=== PATIENT | female | born 1980 | race Caucasian/White ===

== ENCOUNTER 2025-03-04 15:46 | Emergency (ER) | payer OTHER, SELFPAY ==
[2025-03-04 15:56] VITALS: BP 141/95
[2025-03-04 16:14] LABS: Hematocrit 38.3 % (37.0-47.0); Hemoglobin 13.5 g/dL (12.0-16.0); Mean Corp Hgb Conc. 35.2 g/dL (33.0-37.0); Mean Corpuscular Hgb 32.1 pg (27.0-31.0); Mean Corpuscular Volume 91.2 fL (81.0-99.0); Mean Platelet Volume 9.5 fL (7.4-10.4); Platelet Count 228 10^3/uL (130-400); Red Cell Dist. Width 12.2 % (11.5-14.5)
[2025-03-04 16:34] LABS: Blood Urea Nitrogen 3 mg/dl (7-17); Calcium 9.2 mg/dl (8.4-10.2); Carbon Dioxide 21 mmol/L (22-30); Chloride 105 mmol/L (98-107); Glucose 123 mg/dl (70-99); Potassium 3.7 mmol/L (3.5-5.1); Sodium 136 mmol/L (135-145); eGFR > 60.00
[2025-03-04] MEDS: TYLENOL 650 MG PO (18:56)
--- NOTE | 2025-03-04 19:43 | ED.GENMED ---
History of Present Illness
General
Chief Complaint: Headache
Source: patient and family
Time Seen by Provider: 03/04/25 19:22
History of Present Illness
History of Present Illness:
44-year-old female presents emergency department complaints of a headache that first began on Friday and then went away shortly after she had dinner. She felt well on Friday until the afternoon when she developed a gradual onset of a headache
mostly on the right side frontal area but now sometimes extending all over her head. It felt very typical of a 'migraine' for her, so she went to bed at around 7 PM, and tried to create a dark quiet environment. However, the headache is not
resolved since that time. She saw her primary today and was prescribed sumatriptan hand. She was advised to take 2 doses and if no relief of symptoms to come to the emergency department. She did take those doses as well as a low-dose of Benadryl.
The headache is better but still present. She denies associated neck pain, chest pain, dyspnea. She denies recent trauma or fall. She does note associated photophobia which is typical of a migraine for her. The headache feels better when she
applies ice to the right frontal area, and gets partial relief with Tylenol or Motrin. Headache not sudden in onset, and not the worst that she has ever had, but rather just prolonged. She rates the headache as a 5 out of 10 at this time. She
denies recent tick bite, recent rash, recent sick contacts. She denies numbness, tingling, focal weakness, or other complaints. Patient was unaware that she had a fever until arrival here. She denies recent URI symptoms, cough, sore throat,
rhinorrhea, ear pain, etc.
Past History
Past History
ED Past Medical History: HTN and Psychiatric
ED Past Surgical History: Gynecological
Social History
Tobacco: Non-smoker
Alcohol: Occasional
Drug: None
Personal:
Living: with family
Phy Exam
Physical Exam
Physical Exam:
GENERAL: Alert , in no apparent distress
EYE: pupils equal and reactive, no objective photophobia noted, EOMI, no nystagmus
NECK: Supple, no significant adenopathy, not just in no without hesitation.
ENT: o/p clr, mmm.
CARDIAC: Regular rate and rhythm .
LUNGS: Clear breath sounds bilaterally, no acute respiratory distress, no wheezes/rales/rhonchi
ABDOMEN: Soft, without focal tenderness, no r/g, no cvat
NEUROLOGICAL: Alert and oriented, no focal neuro deficits, motor 5 out of 5, sensory intact, cranial nerves II through XII intact, [id number] normal. No meningismus, negative Kernig, negative Brudzinski
SKIN: Warm and dry, skin intact.
MUSCULOSKELETAL: No edema, well perfused.
PSYCH: Normal and appropriate interaction.
Course
Orders/Labs/Results
Orders:
Orders
03/04/25 16:04
BMP [Basic Metabolic Panel] Urgent
Complete Blood Count/No Diff Urgent
Lyme Progressive Urgent
03/04/25 18:55
Acetaminophen [Tylenol] 650 mg PO NOW STA
03/04/25 19:41
CT Head W/o Iv Contrast Urgent
Comment:
Reason For Exam: nunez fever
0.9% Sodium Chloride 1000 ml [Nss] 1,000 ml IV BOLUS
Metoclopramide [Reglan] 10 mg IV NOW STA
03/04/25 19:46
Add On- LAB Urgent
Tests Added?: lyme
03/04/25 20:20
COVID-19 Antigen Urgent
Source: Nasal Swab
Influenza A+B Rapid Molecular Urgent
TIKA Source: Nasal Swab
Specimen Description:
Abnormal Lab Results
03/04/25
16:04
MCH 32.1 H pg
(27.0-31.0)
Carbon Dioxide 21 L mmol/L
(22-30)
BUN 3 L mg/dl
(7-17)
Glucose 123 H mg/dl
(70-99)
03/04/25 16:04
03/04/25 16:04
Vital Signs
Initial and Last Documented VS:
Initial Vital Signs
Temp Pulse Resp BP Pulse Ox
101.4 F H 120 16 141/95 100
03/04/25 15:56 03/04/25 15:56 03/04/25 15:56 03/04/25 15:56 03/04/25 15:56
Last Documented Vital Signs
Temp Pulse Resp BP Pulse Ox
102.9 F H 120 16 141/95 100
03/04/25 18:52 03/04/25 15:56 03/04/25 15:56 03/04/25 15:56 03/04/25 19:46
*Pulse Oximetry
SaO2: 100
Oxygen Mode of Delivery: Room air
*Critical Care Note
Total Time (30-74mins, 75-104mins- exclusive of procedures): Not Applicable
Update Note
Update Note:
Patient presents to the Emergency Department with headache
Number and Complexity of Problems Addressed at the Encounter
� Chronic conditions affecting care:
� Acute Exacerbation and/or Progression of Chronic Illness:
� Differential Diagnosis includes: But not limited to persistent migraine, tension headache, meningitis, Lyme disease, etc. etc.
Amount and/or Complexity of Data to be Reviewed and Analyzed
� I performed an independent evaluation of and my interpretation is:
EKG:
CT:No CT evidence for acute intracranial hemorrhage or obstructive hydrocephalus.
2. Low-lying cerebellar tonsils (or mild Chiari I malformation).
3. Mild right sphenoid sinusitis.
Xrays:
Laboratory Studies: Generally unremarkable, normal white blood cell count, COVID flu negative
Other:
� Review of other/old records reveals:
� Clinical information was obtained by an independent historian: Mom who is bedside
� Prescriptions/Medications Considered but not given:
� Further testing considered but not performed:
Risk of Complications and/or Morbidity or Mortality of Patient Management
� Social determinants of health affecting care:
� Discussion with other providers (PCP, Hospitalists, Consultants, etc):
� Escalation of care including admission/observation vs risk of discharge considered: 8:55 PM reassessment patient feels better, no new symptoms. She specially finds that the medication plus an ice pack at the right frontal area
completely relieves her symptoms. She continues to look nontoxic, generally well, and she is asking about going home. At this time I highly doubt acute infectious process centrally such as meningitis/encephalitis given patient's well appearance,
lack of meningismus, etc.
9:50 PM patient given copy of CT report for outpatient follow-up. She feels significantly better and is eager to be discharged. She denies new symptoms, and continues to be nontoxic. Given context of headache and fever, meningitis/encephalitis
always a consideration however her clinical condition and workup here have been very unconvincing. I did discuss with her reasons to return the emergency department including new symptoms, worsening headache, etc. and the importance of follow-up.
Her neurological exam is completely normal. Mom at bedside and in agreement as well.
ED Attending Note
-
Portions of this chart may have been created with voice recognition software.� Occasional wrong word or��sound alike� substitutions may have occurred due to the inherent limitations of voice recognition software.
Discharge Plan
Departure
Patient Disposition: Home (Routine Discharge)
Date of Disposition: 03/04/25
Time of Disposition: 21:52
Patient with high blood pressure during this ER visit?: Yes
Condition: Good
Discharge Problem:
Headache
Instructions: Headache, Adult (DC), BLOOD PRESSURE
Prescriptions:
No Action
vit-iron fum-folic ac [ Vitamin with Minerals] 1 EACH tablet
1 ea PO
citalopram 20 MG tablet
20 mg PO DAILY
CALCIUM
FOLIC ACID
Magnesium
Referrals:
UNKNOWN - PT DOES,NOT KNOW [Family Provider]
Activity Restrictions/Additional Instructions:
IF YOU DEVELOP A RASH, WORSENING NEW OR PERSISTENT HEADACHE, NECK STIFFNESS OR PAIN, NAUSEA, VOMITING, LETHARGY, GET WORSE, DO NOT GET BETTER, OR OTHER WORRISOME, PLEASE RETURN TO THE ER IMMEDIATELY !
Interventions
Interventions:
*Risk Screen - Suicide Last Done: 03/04/25 15:56
*General Assessment Last Done: 03/04/25 17:14
*Neglect/Abuse Screening Last Done: 03/04/25 16:00
ED- Neurological Assessment Last Done: 03/04/25 17:14
Discharge Date and Time
Print Language: LITHUANIAN
[2025-03-04] MEDS: REGLAN 10 MG IV (19:49)
[2025-03-04] MEDS: NSS 1000 IV (19:50)
[2025-03-04 20:42] LABS: COVID-19 Antigen Negative (Negative)
[2025-03-07 13:43] LABS: Lyme Antibody Screen, EIA Negative (Negative)
== END 2025-03-04 22:09 | disposition home or self-care (01) ==
LOC: EMR 15:46
PROVIDERS: Student in an Organized Health Care Education/Training Program; EMERGENCY PHYSICIAN Emergency Medicine
DX: R51.9 Headache, unspecified (principal); I10 Essential (primary) hypertension; Z11.52 Encounter for screening for COVID-19
CPT/HCPCS: 99285; 96360; 70450; 80048; 85027; 86618; 87502; 87811

== ENCOUNTER 2025-03-05 19:22 | Inpatient (IN) | payer OTHER, SELFPAY ==
[2025-03-05 11:53] VITALS: BP 138/86
[2025-03-05] MEDS: NSS 500 IV (14:58)
[2025-03-05] MEDS: BENADRYL 12.5 MG IV (14:58)
--- NOTE | 2025-03-05 14:58 | ED.GENMED ---
History of Present Illness
<Pavel Devine MD - Last Filed: 03/05/25 15:05>
General
Chief Complaint: Fever
Source: patient
Exam Limitations: none
Time Seen by Provider: 03/05/25 12:38
Nursing documentation reviewed up to this point in time: agreed with
History of Present Illness
History of Present Illness:
Patient presents to ED secondary to persistent headache over the past 3 days, along with fever. Patient took ibuprofen this morning, on approximately 2 hours prior to arrival secondary to continual fever. Denies blurred vision. Denies neck pain.
Denies dizziness. Denies nausea or vomiting. Denies loss of sensation or weakness. Denies sore throat. Patient was evaluated in ED last night for same complaint and was discharged home after unremarkable workup, including blood work and CT head.
On her discharge instructions, patient was advised to return to ED with rash. Patient reports that she did notice rash in her left lower leg, which when thinking about it, was present 1 week ago as well, and has not changed in morphology or
location. Denies rash in any other part of her body. Denies take or insect bite. Denies recent travel. Denies sick contact. Denies previous history of similar symptoms. Patient reports photophobia.
Past History
<Pavel Devine MD - Last Filed: 03/05/25 15:05>
Past History
ED Past Medical History: HTN and Psychiatric
ED Past Surgical History: Gynecological
Social History
Tobacco: Non-smoker
Alcohol: Occasional
Drug: None
Personal:
Living: with family
Review of Systems
<Pavel Devine MD - Last Filed: 03/05/25 15:05>
Review of Systems
Allergies reviewed?: Yes
All Other Systems: ROS reviewed and negative except as documented in HPI and ROS
Constitutional: Reports fever
Respiratory: Reports no symptoms
Cardiac: Reports no symptoms
ABD/GI: Reports no symptoms
Musculoskeletal: Reports no symptoms
Skin: Reports no symptoms
Neurological: Reports headache
Phy Exam
<Pavel Devine MD - Last Filed: 03/05/25 15:05>
Physical Exam
Physical Exam:
Physical Exam
General: mild distress, not acutely ill. afebrile.
Head: nc/at. eomi
Neck: supple. no meningeal signs. negative Kernig's and Brudzinski's sign. normal range of motion.
Heart: s1/s2 regular rate and rhythm
Lungs: no acute respiratory distress. clear bilaterally
Abdomen: normal bowel sounds. not tender.
Neuro: alert and oriented x 3. no focal neurological deficits. normal speech
Skin: an approx 4cm diameter papular rash noted over left lower leg, along anterior tibia, without tenderness. an approx 1cm area of erythema noted at base of left 2nd/3rd phalanx without tenderness or open drainage
Psychiatric: well kept. interactive and cooperative
Extremities: no edema. no calf tenderness.
Course
<Pavel Devine MD - Last Filed: 03/05/25 15:05>
Orders/Labs/Results
Orders:
Orders
03/05/25 14:34
Diphenhydramine [Benadryl] 12.5 mg IV NOW STA
Ketorolac [Toradol] 15 mg IV NOW STA
Metoclopramide [Reglan] 10 mg IV NOW STA
03/05/25 14:36
0.9% Sodium Chloride 500 ml [Nss] 500 ml IV BOLUS
03/05/25 14:52
Anaplasma phagocytophila IgG/M [S] Urgent
C-Reactive Protein Urgent
Comment: ADD ON
Complete Blood Count/With Diff Urgent
Comprehensive Metabolic Panel Urgent
Ehrlichia chaffeensis Ab Panel [S] Urgent
Erythrocyte Sed Rate Urgent
Comment: ADD ON
Magnesium Urgent
Monotest Urgent
Comment: ADD ON
Uric Acid Urgent
Comment: ADD ON
Blood Culture Q30M
TIKA Source: Blood/Venous
Specimen Description:
Blood Culture Q30M
TIKA Source: Blood/Venous
Specimen Description:
Blood Parasites Urgent
TIKA Source: Blood/Venous
Specimen Description:
03/05/25 Dinner
Regular
At Your Request: Full Participation
03/05/25 17:40
Add On- LAB Urgent
Tests Added?: ESR, CRP
03/05/25 17:49
Add On- LAB Urgent
Tests Added?: monoscreen
03/05/25 17:55
D-Dimer Urgent
Lyme PCR, DNA [S] Urgent
Varicella-Zoster Virus By PCR [S] Urgent
Source: Vesicle Fluid
Comment: CSF
03/05/25 18:10
MR Brain W/o & With Contrast Routine
Comment:
Reason For Exam: headache, fever, rash
OK for patient to be off Cardiac Monitoring for MRI: No
Recent pill cam endoscopy?: No
03/05/25 18:46
SHAMEKA, IgG Reflex to HEp-2 [S] Routine
Sjogrens Ab (SSA 52, 60/SSB) [S] Routine
03/05/25 18:53
Morphine Sulfate 4 mg IV NOW STA
03/05/25 19:02
Admit/Transfer Patient As Directed
Co-Sign Provider:
Level of Care: Inpatient admission
Assign to:: Medical/Surgical
Physician / Group: Gus
Diagnosis: Fever
Reason for Hospitalization: Fever of uknown source
Expected length of stay greater than two midnights?: Yes
ELOS- Estimated Length of Stay in days: 2
I certify the patient meets the requirements for IP care: Yes
PRN Pain Medication Management As Directed
May give lesser potent ordered pain med per pt: Yes
preference::
Protocol:: Medication orders for pain may be administered in a
manner that supports deferring to patient preference
when the pt is:
- Requesting an ordered lesser potent pain medication.
Least to most potent pain medications are defined
as: acetaminophen < NSAID < tramadol < opioids
(morphine, oxycodone, hydromorphone).
- Requesting a lesser dose of the same medication IF
ORDERED.
- Requesting a less intrusive route of administration
if both routes are prescribed by the provider (PO <
IV).
03/05/25 19:03
Code Status As Directed
Resuscitation Status: Full Code
03/05/25 19:17
Add On- LAB Stat
Tests Added?: uric acid
CR Foot - Left Min 3 Views Stat
Comment:
Reason For Exam: eval for foreign body, osteo
03/05/25 21:02
Acetaminophen [Tylenol] 650 mg PO Q4HPRN PRN
Bisacodyl [Dulcolax] 10 mg RECTAL [id number] PRN
Docusate W/Senna [Senokot-S] 1 tablet PO BIDPRN PRN
Ketorolac [Toradol] 15 mg IV Q6HPRN PRN
Metoclopramide [Reglan] 10 mg IV Q6HPRN PRN
Morphine Sulfate 2 mg IV Q4HPRN PRN
Polyethylene Glycol Powder [Miralax] 17 grams PO DAILYPRN PRN
03/05/25 21:02
Activity As Directed
Activity Level: With Assistance
Pneumatic Compression Sleeves As Directed
Type: Knee high
Vital Signs As Directed
Frequency: Per unit guidelines
DX Deep Vein Thrombosis Video Routine
03/06/25 06:00
Basic Metabolic Panel IN AM
Complete Blood Count/No Diff IN AM
Abnormal Lab Results
03/05/25 03/05/25
14:52 17:55
WBC 4.7 L 10^3/uL
(4.8-10.8)
RBC 3.97 L 10^6/uL
(4.20-5.40)
Hct 36.5 L %
(37.0-47.0)
MCH 32.0 H pg
(27.0-31.0)
Absolute Lymphs (auto) 0.7 L 10^3/uL
(1.2-3.4)
Lymphocytes % 14.9 L %
(20.5-51.1)
Monocytes % 10.2 H %
(1.7-9.3)
ESR 192 H mm/hour
(0-20)
D-Dimer 0.95 H ug/mlFEU
(0.00-0.50)
Potassium 3.4 L mmol/L
(3.5-5.1)
Chloride 110 H mmol/L
(98-107)
Creatinine 0.5 L mg/dL
(0.6-1.0)
Uric Acid 2.2 L mg/dl
(2.5-6.2)
AST 119 H U/L
(14-36)
ALT 98 H U/L
(0-35)
C-Reactive Protein 135.10 H mg/L
(0.0-10.00)
03/05/25 14:52
03/05/25 14:52
Vital Signs
Initial and Last Documented VS:
Initial Vital Signs
Temp Pulse Resp BP Pulse Ox
98.4 F 102 18 138/86 100
03/05/25 11:53 03/05/25 11:53 03/05/25 11:53 03/05/25 11:53 03/05/25 11:53
Last Documented Vital Signs
Temp Pulse Resp BP Pulse Ox
102.4 F H 109 14 146/95 100
03/05/25 21:23 03/05/25 21:23 03/05/25 21:23 03/05/25 21:23 03/05/25 21:23
<Juan Moreno, DO - Last Filed: 03/05/25 22:53>
Orders/Labs/Results
Orders:
Orders
03/05/25 14:34
Diphenhydramine [Benadryl] 12.5 mg IV NOW STA
Ketorolac [Toradol] 15 mg IV NOW STA
Metoclopramide [Reglan] 10 mg IV NOW STA
03/05/25 14:36
0.9% Sodium Chloride 500 ml [Nss] 500 ml IV BOLUS
03/05/25 14:52
Anaplasma phagocytophila IgG/M [S] Urgent
C-Reactive Protein Urgent
Comment: ADD ON
Complete Blood Count/With Diff Urgent
Comprehensive Metabolic Panel Urgent
Ehrlichia chaffeensis Ab Panel [S] Urgent
Erythrocyte Sed Rate Urgent
Comment: ADD ON
Magnesium Urgent
Monotest Urgent
Comment: ADD ON
Uric Acid Urgent
Comment: ADD ON
Blood Culture Q30M
TIKA Source: Blood/Venous
Specimen Description:
Blood Culture Q30M
TIKA Source: Blood/Venous
Specimen Description:
Blood Parasites Urgent
TIKA Source: Blood/Venous
Specimen Description:
03/05/25 Dinner
Regular
At Your Request: Full Participation
03/05/25 17:40
Add On- LAB Urgent
Tests Added?: ESR, CRP
03/05/25 17:49
Add On- LAB Urgent
Tests Added?: monoscreen
03/05/25 17:55
D-Dimer Urgent
Lyme PCR, DNA [S] Urgent
Varicella-Zoster Virus By PCR [S] Urgent
Source: Vesicle Fluid
Comment: CSF
03/05/25 18:10
MR Brain W/o & With Contrast Routine
Comment:
Reason For Exam: headache, fever, rash
OK for patient to be off Cardiac Monitoring for MRI: No
Recent pill cam endoscopy?: No
03/05/25 18:46
SHAMEKA, IgG Reflex to HEp-2 [S] Routine
Sjogrens Ab (SSA 52, 60/SSB) [S] Routine
03/05/25 18:53
Morphine Sulfate 4 mg IV NOW STA
03/05/25 19:02
Admit/Transfer Patient As Directed
Co-Sign Provider:
Level of Care: Inpatient admission
Assign to:: Medical/Surgical
Physician / Group: Gus
Diagnosis: Fever
Reason for Hospitalization: Fever of uknown source
Expected length of stay greater than two midnights?: Yes
ELOS- Estimated Length of Stay in days: 2
I certify the patient meets the requirements for IP care: Yes
PRN Pain Medication Management As Directed
May give lesser potent ordered pain med per pt: Yes
preference::
Protocol:: Medication orders for pain may be administered in a
manner that supports deferring to patient preference
when the pt is:
- Requesting an ordered lesser potent pain medication.
Least to most potent pain medications are defined
as: acetaminophen < NSAID < tramadol < opioids
(morphine, oxycodone, hydromorphone).
- Requesting a lesser dose of the same medication IF
ORDERED.
- Requesting a less intrusive route of administration
if both routes are prescribed by the provider (PO <
IV).
03/05/25 19:03
Code Status As Directed
Resuscitation Status: Full Code
03/05/25 19:17
Add On- LAB Stat
Tests Added?: uric acid
CR Foot - Left Min 3 Views Stat
Comment:
Reason For Exam: eval for foreign body, osteo
03/05/25 21:02
Acetaminophen [Tylenol] 650 mg PO Q4HPRN PRN
Bisacodyl [Dulcolax] 10 mg RECTAL [id number] PRN
Docusate W/Senna [Senokot-S] 1 tablet PO BIDPRN PRN
Ketorolac [Toradol] 15 mg IV Q6HPRN PRN
Metoclopramide [Reglan] 10 mg IV Q6HPRN PRN
Morphine Sulfate 2 mg IV Q4HPRN PRN
Polyethylene Glycol Powder [Miralax] 17 grams PO DAILYPRN PRN
03/05/25 21:02
Activity As Directed
Activity Level: With Assistance
Pneumatic Compression Sleeves As Directed
Type: Knee high
Vital Signs As Directed
Frequency: Per unit guidelines
DX Deep Vein Thrombosis Video Routine
03/06/25 06:00
Basic Metabolic Panel IN AM
Complete Blood Count/No Diff IN AM
Abnormal Lab Results
03/05/25 03/05/25
14:52 17:55
WBC 4.7 L 10^3/uL
(4.8-10.8)
RBC 3.97 L 10^6/uL
(4.20-5.40)
Hct 36.5 L %
(37.0-47.0)
MCH 32.0 H pg
(27.0-31.0)
Absolute Lymphs (auto) 0.7 L 10^3/uL
(1.2-3.4)
Lymphocytes % 14.9 L %
(20.5-51.1)
Monocytes % 10.2 H %
(1.7-9.3)
ESR 192 H mm/hour
(0-20)
D-Dimer 0.95 H ug/mlFEU
(0.00-0.50)
Potassium 3.4 L mmol/L
(3.5-5.1)
Chloride 110 H mmol/L
(98-107)
Creatinine 0.5 L mg/dL
(0.6-1.0)
Uric Acid 2.2 L mg/dl
(2.5-6.2)
AST 119 H U/L
(14-36)
ALT 98 H U/L
(0-35)
C-Reactive Protein 135.10 H mg/L
(0.0-10.00)
03/05/25 14:52
03/05/25 14:52
Vital Signs
Initial and Last Documented VS:
Initial Vital Signs
Temp Pulse Resp BP Pulse Ox
98.4 F 102 18 138/86 100
03/05/25 11:53 03/05/25 11:53 03/05/25 11:53 03/05/25 11:53 03/05/25 11:53
Last Documented Vital Signs
Temp Pulse Resp BP Pulse Ox
102.4 F H 109 14 146/95 100
03/05/25 21:23 03/05/25 21:23 03/05/25 21:23 03/05/25 21:23 03/05/25 21:23
<Pavel Devine MD - Last Filed: 03/05/25 15:05>
MDM/Problems Addressed
MDM/Problems Addressed:
History and exam consistent with likely nonspecific viral illness. Exam inconsistent with acute bacterial meningitis. In light of patient's ongoing symptoms, will check patient for blood cultures along with other tickborne illnesses, i.e.
Anaplasma, ehrlichiosis, and Babesia. Patient will be treated symptomatically and if improved, will discharge home with recommendation to follow-up with PCP for reevaluation.
<Pavel Devine MD - Last Filed: 03/05/25 15:05>
*Pulse Oximetry
SaO2: 100
Oxygen Mode of Delivery: Room air
<Juan Moreno DO - Last Filed: 03/05/25 22:53>
*Critical Care Note
Total Time (30-74mins, 75-104mins- exclusive of procedures): 30 minutes
<Juan Moreno DO - Last Filed: 03/05/25 22:53>
Update Note
Update Note:
Patient reassessed several times. Continues to have headache despite meds given. Presents after she had fevers and headache. Also with a rash to the lower extremity. Considered lumbar puncture and had a long discussion with the patient. However
reviewed CT imaging from yesterday that considered Chiari I malformation Case was discussed with neurology. Given my low suspicion for bacterial meningitis and findings by CT, do not want to proceed with lumbar puncture given its risk. Patient is
otherwise well-appearing and do overall suspect viral source. Seen by neurology who recommends admission for MRI and possible lumbar puncture if necessary. Other cultures pending. Neurology recommends D-dimer, ESR, CRP
ED Attending Note
<Pavel Devine MD - Last Filed: 03/05/25 15:05>
-
Portions of this chart may have been created with voice recognition software.� Occasional wrong word or��sound alike� substitutions may have occurred due to the inherent limitations of voice recognition software.
Discharge Plan
Departure
Patient Disposition: Admit
Date of Disposition: 03/05/25
Time of Disposition: 18:45
Admit to: Med/Surg
Presentation/result/management discussed w/ accepting MD/DO: Hospitalist
Discharge Problem:
Headache, Fever
Interventions
Interventions:
*Risk Screen - Suicide Last Done: 03/05/25 11:53
*General Assessment Last Done: 03/05/25 11:53
*Neglect/Abuse Screening Last Done: 03/05/25 11:53
*ED- Fall Risk Assessment Last Done: 03/05/25 12:37
*ED COVID-19 Vaccine History Last Done: 03/05/25 12:37
*Nursing Disposition Last Done: 03/05/25 21:05
ED- Neurological Assessment Last Done: 03/05/25 12:37
ED-Skin Assessment Last Done: 03/05/25 12:37
Discharge Date and Time
Discharge Date/Time: 03/05/25 21:06
[2025-03-05] MEDS: REGLAN 10 MG IV (14:59)
[2025-03-05] MEDS: TORADOL 15 MG IV (14:59)
[2025-03-05 15:02] LABS: % Basophils 0.4 % (0-2); % Eosinophils 1.3 % (0-6); % Immature Granulocytes 0.2 % (0-0.5); % Lymphocytes 14.9 % (20.5-51.1); % Monocytes 10.2 % (1.7-9.3); Absolute Eosinophils 0.1 10^3/uL (0-0.7); Absolute Lymphocytes 0.7 10^3/uL (1.2-3.4); Absolute Monocytes 0.5 10^3/uL (0.1-0.6); Absolute Neutrophils 3.4 10^3/uL (1.4-6.5); Hematocrit 36.5 % (37.0-47.0); Hemoglobin 12.7 g/dL (12.0-16.0); Mean Corp Hgb Conc. 34.8 g/dL (33.0-37.0); Mean Corpuscular Volume 91.9 fL (81.0-99.0); Mean Platelet Volume 9.4 fL (7.4-10.4); Nucleated Red Blood Cells % 0 %; Platelet Count 210 10^3/uL (130-400); Red Blood Cell Count 3.97 10^6/uL (4.20-5.40); Red Cell Dist. Width 12.3 % (11.5-14.5); White Blood Cell Count 4.7 10^3/uL (4.8-10.8)
[2025-03-05 15:15] LABS: ALT (SGPT) 98 U/L (0-35); AST (SGOT) 119 U/L (14-36); Albumin 4.1 g/dl (3.5-5.0); Alkaline Phosphatase 89 U/L (38-126); Blood Urea Nitrogen 7 mg/dl (7-17); Calcium 8.9 mg/dl (8.4-10.2); Carbon Dioxide 23 mmol/L (22-30); Chloride 110 mmol/L (98-107); Glucose 88 mg/dl (70-99); Magnesium 2.1 mg/dl (1.6-2.3); Potassium 3.4 mmol/L (3.5-5.1); Sodium 142 mmol/L (135-145); Total Bilirubin 0.6 mg/dl (0.2-1.3); Total Protein 6.9 g/dl (6.3-8.2); eGFR > 60.00
[2025-03-05 16:17] VITALS: BP 129/84
--- NOTE | 2025-03-05 18:09 | CON.NEURO ---
Addendum entered and electronically signed by Leila Barraza MD 03/14/25 10:16:
- Chiari I malformation is not a valid diagnosis for this patient
Original Note:
Consultation
Order
Date of Consultation: 03/05/25
Reason for Consult: Headache
Neurology Consultation Note.
HPI: This is a 44-year-old woman who presented to [facility] on 03/05/2025 with refractory headaches
The current headache began gradually on Friday, initially resolving after dinner. It returned on Friday, and the patient initially attributed it to weather changes. The headache has persisted and worsened over the past three days, reaching a
severity of 8-10 out of 10. The pain is described as pressure, throbbing, and pulsating, dominantly bitemporal with associated phono/photophobia and mild nausea. No reports of head trauma, change in vision sensation or strength, recent traveling,
sore throat, ear pain, nasal congestion. Ms. Romreo reports being in the process of tapering down her sertraline dose from 100mg to 50mg over the past two months.
The patient has attempted to manage the headache with [id number] medications including ibuprofen, acetaminophen, and Excedrin, taken every 4-6 hours since . She was seen by PCP and prescribed sumatriptan 25mg, which she took on Friday
without relief. Due to the lack of improvement, the patient went to the emergency room on 03/04/2025 afternoon, where he she was found to be febrile(39.4F).
Concurrent with the onset of the headache, the patient noticed a nonpruritic, erythematous rash on her left calf and dorsum of the L foot.
ER VS: Tmax: 39.1 C, 138/86, 102
CT [id number] cerebellar tonsils (or mild Chiari I malformation); mild right sphenoid sinusitis.
PDMP:none
Labs: Normal glucose, sodium, ferritin, WBCs�4.7, ALT�98, AST�119
PMH: HTN, MONICA, migraine without aura, vitamin D deficiency
PSH: Multiple laparoscopic surgeries for ectopic pregnancies
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
FH: No family history of rheumatological disease
All:NKDA
ROS:positive for fever; intentional weight loss over the past year and a half
HENT: Negative for ear pain, hearing loss, tinnitus and trouble swallowing.
Eyes: Negative. Negative for photophobia, pain and visual disturbance.
Respiratory: Negative for cough, choking and shortness of breath.
Cardiovascular: Negative for chest pain, palpitations and leg swelling.
Gastrointestinal: Positive for mild nausea.
Endocrine: Negative. Negative for cold intolerance.
Genitourinary: Negative for dysuria, flank pain and urgency.
Musculoskeletal: Negative for back pain, gait problem, neck pain and neck stiffness.
Skin: Positive for rash
Allergic/Immunologic: Negative. Negative for immunocompromised state.
Neurological: Positive for headache
Psychiatric/Behavioral: Negative for behavioral problems, confusion and hallucinations.
General: Well developed. In no acute distress.
Cardio: Regular rate and rhythm without murmur. Extremities are without cyanosis or edema.
Neuro:
Mental Status: Alert, oriented to person, place, and date. Normal attention and recall. Good fund of knowledge. Follows complex requests across the midline. Comprehension, naming, and repetition intact. Immediate and delayed recall 3/3.
Cranial Nerves: Pupils are equally round and reactive to light. EOMs full. Visual mcneal full to confrontation. No ptosis. No nystagmus. V1-V3 intact to light touch and pinprick bilaterally, symmetric. Face symmetric. Normal hearing AU. The
palate elevated well. SCMs and traps 5/5. Tongue midline. No dysarthria.
Motor: Normal bulk and tone. No pronator or arm drift. Strength 5/5 throughout. No clonus.
Reflexes: 2+ throughout the upper extremities and knees. 2/2 in AJs. Plantar responses flexor bilaterally.
Sensory: Normal pinprick, vibration and JPS.
Coordination: No dysmetria or tremor.
Gait: deferred
Assessment and Plan:
I. Right sphenoid sinusitis. Rule out cerebral sinus thrombosis
II. Status migrainous
III.MONICA
-EKG
- Brain MRI/MRV w/wo monica
- ID consult
- IV Toradol 30 mg, Reglan 10 mg, Benadryl 25 mg Q8h PRN for moderate to severe headache.
- Please check ESR, CRP, magnesium, Lyme ab, D Dimers
- DVT prophylaxis
I personally reviewed all radiology and labs along with past medical records pertinent to current medical problems. Total time spent in patient care is 60 minutes.
Thank you for allowing us to participate in the care of this patient. We will continue to follow. Please do not hesitate to contact us with any questions or concerns.
Subjective/Objective
Subjective Data
Date of Service: March 05, 2025
Objective Data
Vital Signs
Temp Pulse Resp BP Pulse Ox
37.2 C 88 16 129/84 99
03/05/25 16:17 03/05/25 16:17 03/05/25 16:17 03/05/25 16:17 03/05/25 16:17
Lab Results
03/05/25 14:52
03/05/25 14:52
Sodium 142 mmol/L (135-145) 03/05/25 14:52
Potassium 3.4 mmol/L (3.5-5.1) L 03/05/25 14:52
BUN 7 mg/dl (7-17) 03/05/25 14:52
Glucose 88 mg/dl (70-99) 03/05/25 14:52
Calcium 8.9 mg/dl (8.4-10.2) 03/05/25 14:52
Patient Allergies
No Known Drug Allergies Allergy (Verified 03/05/25 11:53)
Unknown
Medications
-
Home Medications
�Medication �Instructions �Recorded
CALCIUM 12/23/11
FOLIC ACID 12/23/11
Magnesium 12/23/11
citalopram 20 mg tablet 20 mg PO DAILY 12/23/11
vitamin-ferrous fumarate 1 ea PO 12/23/11
28 mg iron-folic acid 800 mcg
tablet ( Vitamins with
Minerals)
Vital Signs and Labs
-
Vital Signs and Labs:
Vital Signs
Temp Pulse Resp BP Pulse Ox
36.6 C 94 20 143/94 100
03/06/25 07:44 03/06/25 07:44 03/06/25 07:44 03/06/25 07:44 03/06/25 07:44
Lab Results
03/06/25 05:19
03/06/25 05:20
Sodium 139 mmol/L (135-145) 03/06/25 05:20
Potassium 3.4 mmol/L (3.5-5.1) L 03/06/25 05:20
BUN 3 mg/dl (7-17) L 03/06/25 05:20
Glucose 88 mg/dl (70-99) 03/06/25 05:20
Calcium 8.4 mg/dl (8.4-10.2) 03/06/25 05:20
LDL Cholesterol, Calc 96 mg/dl 03/06/25 05:20
Medications
-
Medications:
Generic Name Dose Route Start Last Admin
Trade Name Freq PRN Reason Stop Dose Admin
Acetaminophen 650 mg 03/05/25 21:02 03/06/25 02:54
Acetaminophen 325 Mg Tablet PO 04/02/25 21:01 650 mg
Q4HPRN PRN Administration
mild pain/MALONE/temp> 100.4F
Bisacodyl 10 mg 03/05/25 21:02
Bisacodyl 10 Mg Rectal Suppository RECTAL 04/02/25 21:01
[id number] PRN
constipation
Diphenhydramine HCl 25 mg 03/06/25 07:49 03/06/25 08:14
Diphenhydramine 50 Mg/Ml 1 Ml Vial IV 04/03/25 07:48 25 mg
Q4HPRN PRN Administration
headache
Ketorolac Tromethamine 30 mg 03/06/25 07:49 03/06/25 08:13
Ketorolac 30 Mg/Ml Injection IV 03/11/25 07:48 30 mg
Q8HPRN PRN Administration
headache
Metoclopramide HCl 10 mg 03/05/25 21:02 03/06/25 08:14
Metoclopramide 10 Mg/2 Ml Vial IV 04/02/25 21:01 10 mg
Q6HPRN PRN Administration
nausea
Morphine Sulfate 2 mg 03/05/25 21:02 03/06/25 02:47
Morphine 2 Mg/Ml Syringe IV 03/19/25 21:01 2 mg
Q4HPRN PRN Administration
severe pain
Polyethylene Glycol 17 grams 03/05/25 21:02
Polyethylene Glycol Powder 17 Grams Packet PO 04/02/25 21:01
DAILYPRN PRN
constipation
Senna/Docusate Sodium 1 tablet 03/05/25 21:02
Docusate W/Senna (Vane-Colace) Tablet PO 04/02/25 21:01
BIDPRN PRN
constipation
Sodium Chloride 0 flush 03/05/25 22:00
Sodium Chloride 0.9% (Flush) Syringe IV 04/02/25 21:59
PER PROTOCOL ALEXUS
Home Medications
-
Home Medications
acetaminophen 325 mg tablet (Tylenol) 650 mg PO Q6HPRN PRN mild pain 03/05/25
cholecalciferol (vitamin D3) 25 mcg (1,000 unit) tablet (Vitamin D3) 25 mcg PO DAILY 03/05/25
lisinopril 20 mg tablet 20 mg PO DAILY 03/05/25
sertraline 50 mg tablet 50 mg PO DAILY 03/05/25
tirzepatide (weight loss) 10 mg/0.5 mL subcutaneous pen injector (Zepbound) 10 mg SC FR 03/05/25
[2025-03-05 18:16] LABS: D-Dimer 0.95 ug/mlFEU (0.00-0.50)
[2025-03-05 18:38] LABS: Monotest Negative (Negative)
[2025-03-05 18:52] LABS: Erythrocyte Sed Rate 192 mm/hour (0-20)
--- NOTE | 2025-03-05 18:53 | HPS.HSE ---
Family Physician
-
Family Physician: Matheus Infante
Chief Complaint
-
Fever and headache
History of Present Illness
This is a 44-year-old female with past medical history significant for hypertension, depression who presents to the emergency department with persistent headache for the last 3 days. She was seen in the emergency department 1 day ago and at that
time was found to have a fever to as high as 102.9.
Patient reports onset of headache about 4 days ago. She describes it as a pressure and a throbbing sensation. Its persistent. She has no prior history of headaches.
Patient denies any double vision or blurry vision, she denies any nausea vomiting, neck stiffness or neck pain. She denies any sore throat. She denies any cough or shortness of breath.
She first noticed having a fever yesterday. Denies any prior fevers.
Patient did report that she has had a rash in left lower extremity for an unknown duration past 1 week. There appears to be 2 erythematous patches the cough as well as on the dorsum of the left foot. She found she stepped on a wasp prior to
symptom onset.
She was seen in the ED yesterday with complete workup as listed below. After discharge the patient reported that she noticed a rash on her left lower leg that is been present for about 1 week. Denies any recent travels, sick contacts, insect
bites. Denies any prior history of headaches or recurrent fevers.
In the emergency department patient had a temp of 98.9, blood pressure was 130/80 with a pulse of 97 satting 100% on room air.
CBC was mostly unremarkable. Electrolytes were stable. BUN/creatinine were normal. He has slight elevation in AST to 120 and ALT 200.
D-dimer was elevated, CRP was markedly elevated at 135, ESR is pending. Monospot negative.
CT head:
1. No CT evidence for acute intracranial hemorrhage or obstructive hydrocephalus.
2. Low-lying cerebellar tonsils (or mild Chiari I malformation).
3. Mild right sphenoid sinusitis.
Medical History
Past Medical History
Past Medical History: Reports HTN and Psychiatric
Past Surgical History: Reports Gynocological
Social History
Tobacco: Non-smoker
Alcohol: Daily
Drug: None
Family History
Family History: Not pertinent
Allergies / Home Medications
Allergies reflects when Allergies were last updated in [facility].
Home Medications with original date entered in [facility]
Allergy/Medication List:
Allergies
Allergy/AdvReac Type Severity Reaction Status Date / Time
No Known Drug Allergies Allergy Unknown Verified 03/05/25 11:53
Home Medications
acetaminophen 325 mg tablet (Tylenol) 650 mg PO Q6HPRN PRN mild pain 03/05/25
cholecalciferol (vitamin D3) 25 mcg (1,000 unit) tablet (Vitamin D3) 25 mcg PO DAILY 03/05/25
lisinopril 20 mg tablet 20 mg PO DAILY 03/05/25
sertraline 50 mg tablet 50 mg PO DAILY 03/05/25
tirzepatide (weight loss) 10 mg/0.5 mL subcutaneous pen injector (Zepbound) 10 mg SC FR 03/05/25
Review of Systems
-
Constitutional: Reports Fever
EENT: Reports No Symptoms
Respiratory: Reports No Symptoms
Cardiac: Reports No Symptoms
Abdomen/GI: Reports No Symptoms
: Reports No Symptoms
Musculoskeletal: Reports No Symptoms
Skin: Reports No Symptoms
Neurological: Reports No Symptoms
Endocrine: Reports No Symptoms
Hematologic/Lymphatic: Reports No Symptoms
Psych: Reports No Symptoms
Physical Exam
Vital Signs
Vital Signs
Temp Pulse Resp BP Pulse Ox
98.9 F 97 16 129/84 100
03/05/25 16:17 03/05/25 18:20 03/05/25 16:17 03/05/25 16:17 03/05/25 18:20
Physical Exam
General: Well Developed, Well Nourished and No Apparent Distress
HEENT: NormoCephalic, Moist mucous membranes and Atraumatic
Respiratory: Clear
Cardiac: S1/S2 and Regular Rhythm; No Murmur or Rub
GI: Soft, Non Tender, Non Distended and Normal Bowel Sounds; No Organomegaly
Rectal: Deferred by Provider
Genito-urinary: Deferred by me
Musculoskeletal: No Clubbing, No Cyanosis and No Edema
Skin: Rash ( 5 cm radius circular erythematous patch at the left calf. There is a smaller patch on the dorsum of the left foot. Erythematous and slightly tender to palpation, warm.)
Neuro: Nonfocal/grossly intact
Laboratory Results
-
03/05/25 14:52
03/05/25 14:52
Laboratory Results
Total Bilirubin 0.6 mg/dl (0.2-1.3) 03/05/25 14:52
AST 119 U/L (14-36) H 03/05/25 14:52
ALT 98 U/L (0-35) H 03/05/25 14:52
Alkaline Phosphatase 89 U/L (38-126) 03/05/25 14:52
Data Reviewed
-
CT Scan: Report Reviewed by me
Lab Data: Labs Reviewed by me
Old Records: Reviewed
Impression/Plan
-
IMPRESSION:
44 y.o female with fever and headache. Fever presently appears to be of unknown source, other than headache no localizing findings. She is hemodynamically stable and nontoxic-appearing. Headache for 4 days, fever for 2 days, there is a rash in
the left calf as well as on the dorsum of the left foot. No leukocytosis. Rash, recurrent fevers and headache raise concern for parasitic infection such as lyme, ehrlichiosis, less likely babesia. Viral illness such as VZV/CMV/EBV or an
autoinflammatory process given marked elevation in routine inflammatory markers.
PLAN:
Fever of unknown source x2 days, recurrent - viral infection, tick borne illness, autoinflammatory process/ MAS are in the differential
- admit to med/surg
- Blood cultures have been sent
� Covid/flu negative
- Infectious mono negative
- u/a reflex culture
- LP after MRI
- xray of the left foot r/o foreign body, foot abscess
- Serologies for Anaplasma, Ehrlichia, Lyme, pending
� Peripheral smear for parasites pending
- SHAMEKA/SSA/SSB pending
- check uric acid, LDH, ferritin
- abdominal exam benign and lungs clear. If fever persists, will obtain CT chest/abd/pelvis for fever of unknown source
- Antipyretics and analgesics as needed for now
- hold off abx pending ID consultation
-ID consult
Headache - no focal deficits, meningeal signs or encephalopathy. Cannot rule out a viral encephalitis entirely, due to the low-lying cerebellar tonsils LP considered but deferred deferred for now.
-Neurology recommends MRI, ordred
-Possible LP after MRI
-Neurology consult
Transaminitis - Regular etoh use but not recently. No prior h/o liver disease. No abdominal pain, nausea or vomiting
- acute hep panel
- trend lfts
- abdominal imaging if rising (can obtain w/ the CT if still febrile)
DVT PPX - SCDs for now
Code Status - Full code
[2025-03-05] MEDS: MORPHINE SULFATE 4 MG IV (19:00)
[2025-03-05 19:45] LABS: Uric Acid 2.2 mg/dl (2.5-6.2)
[2025-03-05 20:33] VITALS: BP 125/90
[2025-03-05 21:23] VITALS: BP 146/95
[2025-03-05] MEDS: TYLENOL 650 MG PO (21:38)
[2025-03-05] MEDS: MORPHINE SULFATE 2 MG IV (21:47)
[2025-03-05 23:33] VITALS: BP 132/88
[2025-03-06] MEDS: MORPHINE SULFATE 2 MG IV (02:47)
[2025-03-06] MEDS: TYLENOL 650 MG PO ×2 (02:54→20:15)
[2025-03-06 05:49] LABS: Hematocrit 32.7 % (37.0-47.0); Hemoglobin 11.2 g/dL (12.0-16.0); Mean Corp Hgb Conc. 34.3 g/dL (33.0-37.0); Mean Corpuscular Hgb 31.7 pg (27.0-31.0); Mean Corpuscular Volume 92.6 fL (81.0-99.0); Mean Platelet Volume 9.5 fL (7.4-10.4); Platelet Count 223 10^3/uL (130-400); Red Blood Cell Count 3.53 10^6/uL (4.20-5.40); Red Cell Dist. Width 12.2 % (11.5-14.5); White Blood Cell Count 4.9 10^3/uL (4.8-10.8)
[2025-03-06 06:01] LABS: Urine Albumin 1+ (Neg - Trace); Urine Bilirubin Negative (Negative); Urine Character Clear (Clear); Urine Color Yellow; Urine Glucose Negative (Negative); Urine Ketone 3+ (Negative); Urine Leukocyte Negative (Negative); Urine Nitrite Negative (Negative); Urine Occult Blood 2+ (Negative); Urine Urobilinogen Negative (Neg - 1+)
[2025-03-06 06:15] LABS: Blood Urea Nitrogen 3 mg/dl (7-17); Calcium 8.4 mg/dl (8.4-10.2); Carbon Dioxide 23 mmol/L (22-30); Chloride 108 mmol/L (98-107); Glucose 88 mg/dl (70-99); HDL Cholesterol 33 mg/dl; LDL Cholesterol, Calculated 96 mg/dl; Potassium 3.4 mmol/L (3.5-5.1); Sodium 139 mmol/L (135-145); Total Cholesterol 150 mg/dl (50-199); Triglyceride 106 mg/dl (10-149); Very Low Density Lipoprotein 21 mg/dl (0-30); eGFR > 60.00
[2025-03-06 06:32] LABS: Urine Squamous Cell >30 /LPF (Few)
[2025-03-06 06:33] LABS: Urine Amorphous Seen; Urine Bacteria Many (Negative); Urine Mucus Many
[2025-03-06 06:38] LABS: Urine White Cell 40-50 /HPF (0-5)
[2025-03-06 06:39] LABS: Urine Red Blood Cell 21-25 /HPF (0-2)
[2025-03-06 06:41] LABS: Ferritin 75.7 ng/ml (6.24-137)
[2025-03-06 07:44] VITALS: BP 143/94
[2025-03-06] MEDS: TORADOL 30 MG IV ×2 (08:13→15:42)
[2025-03-06] MEDS: BENADRYL 25 MG IV ×2 (08:14→15:42)
[2025-03-06] MEDS: REGLAN 10 MG IV ×2 (08:14→15:42)
[2025-03-06 08:26] LABS: GGTP 58 U/L (12-43); LDH 193 U/L (120-246)
--- NOTE | 2025-03-06 09:08 | W.PN.NEURO.1 ---
Today's Communication / Plan
-
.
Subjective/Objective
Subjective Data
Date of Service: March 06, 2025
Neurology follow-up note.
Mr. Brady continues to have moderate to severe nonpositional headache. No reports of change in vision or motor deficits.
Tmax overnight�39.1 C.
Patient has been given 2 mg of morphine at 9:47 PM and 2:47 AM.
CRP�135, ESR�192.
Brain MRI is pending
PMH: HTN, MONICA, migraine without aura, vitamin D deficiency
PSH: Multiple laparoscopic surgeries for ectopic pregnancies
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
FH: No family history of rheumatological disease
All:NKDA
ROS:positive for fever; intentional weight loss over the past year and a half
HENT: Negative for ear pain, hearing loss, tinnitus and trouble swallowing.
Eyes: Negative. Negative for photophobia, pain and visual disturbance.
Respiratory: Negative for cough, choking and shortness of breath.
Cardiovascular: Negative for chest pain, palpitations and leg swelling.
Gastrointestinal: Positive for mild nausea.
Endocrine: Negative. Negative for cold intolerance.
Genitourinary: Negative for dysuria, flank pain and urgency.
Musculoskeletal: Negative for back pain, gait problem, neck pain and neck stiffness.
Skin: Positive for rash
Allergic/Immunologic: Negative. Negative for immunocompromised state.
Neurological: Positive for headache
Psychiatric/Behavioral: Negative for behavioral problems, confusion and hallucinations.
General: Well developed. In no acute distress.
Cardio: Regular rate and rhythm without murmur. Extremities are without cyanosis or edema.
Neuro:
Mental Status: Alert, oriented to person, place, and date. Normal attention and recall. Good fund of knowledge. Follows complex requests across the midline. Comprehension, naming, and repetition intact. Immediate and delayed recall 3/3.
Cranial Nerves: Pupils are equally round and reactive to light. EOMs full. Visual mcneal full to confrontation. No ptosis. No nystagmus. V1-V3 intact to light touch and pinprick bilaterally, symmetric. Face symmetric. Normal hearing AU. The
palate elevated well. SCMs and traps 5/5. Tongue midline. No dysarthria.
Motor: Normal bulk and tone. No pronator or arm drift. Strength 5/5 throughout. No clonus.
Reflexes: 2+ throughout the upper extremities and knees. 2/2 in AJs. Plantar responses flexor bilaterally.
Sensory: Normal pinprick, vibration and JPS.
Coordination: No dysmetria or tremor.
Gait: deferred
Assessment and Plan:
I. Status migrainous. Right sphenoid sinusitis. Rule out cerebral sinus thrombosis
II. Fever, rash
III. MONICA
- EKG
- Brain MRI/MRV w/wo monica
- IV Toradol 30 mg, Reglan 10 mg, Benadryl 25 mg Q8h PRN for moderate to severe headache.
- Avoid opioids
- Depakote 500 mg IV twice daily if no response to migraine cocktail
- DVT prophylaxis
I personally reviewed all radiology and labs along with past medical records pertinent to current medical problems. Total time spent in patient care is 60 minutes.
Thank you for allowing us to participate in the care of this patient. We will continue to follow. Please do not hesitate to contact us with any questions or concerns.
Objective Data
Vital Signs
Temp Pulse Resp BP Pulse Ox
36.6 C 94 20 143/94 100
03/06/25 07:44 03/06/25 07:44 03/06/25 07:44 03/06/25 07:44 03/06/25 07:44
Lab Results
03/06/25 05:19
03/06/25 05:20
Sodium 139 mmol/L (135-145) 03/06/25 05:20
Potassium 3.4 mmol/L (3.5-5.1) L 03/06/25 05:20
BUN 3 mg/dl (7-17) L 03/06/25 05:20
Glucose 88 mg/dl (70-99) 03/06/25 05:20
Calcium 8.4 mg/dl (8.4-10.2) 03/06/25 05:20
LDL Cholesterol, Calc 96 mg/dl 03/06/25 05:20
Patient Allergies
No Known Drug Allergies Allergy (Verified 03/05/25 11:53)
Unknown
Vital Signs and Labs
-
Vital Signs and Labs:
Vital Signs
Temp Pulse Resp BP Pulse Ox
36.6 C 94 20 143/94 100
03/06/25 07:44 03/06/25 07:44 03/06/25 07:44 03/06/25 07:44 03/06/25 07:44
Lab Results
03/06/25 05:19
03/06/25 05:20
Sodium 139 mmol/L (135-145) 03/06/25 05:20
Potassium 3.4 mmol/L (3.5-5.1) L 03/06/25 05:20
BUN 3 mg/dl (7-17) L 03/06/25 05:20
Glucose 88 mg/dl (70-99) 03/06/25 05:20
Calcium 8.4 mg/dl (8.4-10.2) 03/06/25 05:20
LDL Cholesterol, Calc 96 mg/dl 03/06/25 05:20
Medications
-
Medications:
Generic Name Dose Route Start Last Admin
Trade Name Freq PRN Reason Stop Dose Admin
Acetaminophen 650 mg 03/05/25 21:02 03/06/25 02:54
Acetaminophen 325 Mg Tablet PO 04/02/25 21:01 650 mg
Q4HPRN PRN Administration
mild pain/MALONE/temp> 100.4F
Bisacodyl 10 mg 03/05/25 21:02
Bisacodyl 10 Mg Rectal Suppository RECTAL 04/02/25 21:01
[id number] PRN
constipation
Diphenhydramine HCl 25 mg 03/06/25 07:49 03/06/25 08:14
Diphenhydramine 50 Mg/Ml 1 Ml Vial IV 04/03/25 07:48 25 mg
Q4HPRN PRN Administration
headache
Doxycycline Hyclate 100 mg 03/06/25 11:00 03/06/25 11:02
Doxycycline 100 Mg Capsule PO 03/19/25 20:01 100 mg
Q12 ALEXUS Administration
Ketorolac Tromethamine 30 mg 03/06/25 07:49 03/06/25 08:13
Ketorolac 30 Mg/Ml Injection IV 03/11/25 07:48 30 mg
Q8HPRN PRN Administration
headache
Metoclopramide HCl 10 mg 03/05/25 21:02 03/06/25 08:14
Metoclopramide 10 Mg/2 Ml Vial IV 04/02/25 21:01 10 mg
Q6HPRN PRN Administration
nausea
Morphine Sulfate 2 mg 03/05/25 21:02 03/06/25 02:47
Morphine 2 Mg/Ml Syringe IV 03/19/25 21:01 2 mg
Q4HPRN PRN Administration
severe pain
Polyethylene Glycol 17 grams 03/05/25 21:02
Polyethylene Glycol Powder 17 Grams Packet PO 04/02/25 21:01
DAILYPRN PRN
constipation
Senna/Docusate Sodium 1 tablet 03/05/25 21:02
Docusate W/Senna (Vane-Colace) Tablet PO 04/02/25 21:01
BIDPRN PRN
constipation
Sodium Chloride 0 flush 03/05/25 22:00
Sodium Chloride 0.9% (Flush) Syringe IV 04/02/25 21:59
PER PROTOCOL ALEXUS
Home Medications
-
Home Medications
acetaminophen 325 mg tablet (Tylenol) 650 mg PO Q6HPRN PRN mild pain 03/05/25
cholecalciferol (vitamin D3) 25 mcg (1,000 unit) tablet (Vitamin D3) 25 mcg PO DAILY 03/05/25
lisinopril 20 mg tablet 20 mg PO DAILY 03/05/25
sertraline 50 mg tablet 50 mg PO DAILY 03/05/25
tirzepatide (weight loss) 10 mg/0.5 mL subcutaneous pen injector (Zepbound) 10 mg SC FR 03/05/25
--- NOTE | 2025-03-06 09:12 | CON.ID ---
Consultation
-
Date/Time Consultation Requested: March 05, 20251
Date/Time Consultation Performed: March 06, 2025 0912
Requesting Provider: Dr. Paulina Martinez
Performing Provider: Dr. Shila Cat
Reason for Consultation: Fever of unknown source
Chief Complaint / Past History
Chief Complaint
MALONE and rash
History of Present Illness
44-year-old female with history of hypertension who presented to the hospital March 05 with intractable headaches. Headache started FridayMarch 01 which improved the next day. However, Friday evening the headache recurred involving the whole
head. She saw her primary care physician who prescribed sumatriptan hand for migraines which did not help. She never had headaches before. She also noted a rash on her left forefoot on Friday. Then another rash on the left calf occurred.
Positive fatigue. No joint pains. No known tick or insect exposure. She has 2 dogs. She does live in a property with ticks. In the ER she has been febrile. WBC is smear negative. Lyme screen pending. Anaplasma/Ehrlichia serology is pending.
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
Past History
Additional Past Medical History:
HTN
Depression
Allergy History:
No Known Drug Allergies Allergy (Verified 03/05/25 11:53)
Unknown
Medications Reviewed: Yes
Current Antibiotics:
none
Social History
Tobacco: Non-Smoker
Alcohol: Occasional
Drug: None
Personal:
Living: With Family
Family History
Family History: Not Pertinent
Review of Systems
Review of Systems
General: Chills and Change in Appetite
HEENT: Headache; Negative Sinus Problems or Pharyngitis
Cardiovascular: Negative Chest Pain or Dyspnea
Respiratory: Negative Dyspnea or Cough
Gasteroenterology: Negative Nausea, Vomiting or Diarrhea
Genital / Urological: Negative Dysuria or Flank Pain
Endocrine: Fatigue
Musculoskeletal: Negative Arthralgias
Skin / Hair / Nails: Rash
Neurological: Negative Dizziness
All systems: All other systems were reviewed and were negative
Vital Signs
Temp Pulse Resp BP Pulse Ox
98 F 94 20 143/94 100
03/06/25 07:44 03/06/25 07:44 03/06/25 07:44 03/06/25 07:44 03/06/25 07:44
Selected Entries
03/04/25
18:52
Temp 102.9 F H
Physical Exam
Physical Exam
Constitutional: Non-toxic
Head: Other (No frontal or max or sinus tenderness)
Eyes: No Conjunctival Hemorrhage and Sclera Anicteric
Cardiovascular: Regular Rate and S1/S2
Pulmonary: Clear
Gastrointestinal: Soft, Non Tender, Non Distended and Normal Bowel Sounds
Genito-Urinary: Negative CVA Tenderness
Extremities: Negative Edema
Skin: Rash (Light [place] round erythema left forefoot. left calf with large oval light pink rash)
Neurological: AO x 3; Negative Meningeal Signs
Lab / Diagnostic Study Results
03/06/25 05:19
03/06/25 05:20
Abs Immat Gran (auto) 0.0 10^3/uL (0-0.05) 03/05/25 14:52
Absolute Neuts (auto) 3.4 10^3/uL (1.4-6.5) 03/05/25 14:52
Absolute Lymphs (auto) 0.7 10^3/uL (1.2-3.4) L 03/05/25 14:52
Absolute Monos (auto) 0.5 10^3/uL (0.1-0.6) 03/05/25 14:52
Absolute Basos (auto) 0.0 10^3/uL (0-0.2) 03/05/25 14:52
Immature Gran % 0.2 % (0-0.5) 03/05/25 14:52
Neutrophils % 73.0 % (42.2-75.2) 03/05/25 14:52
Lymphocytes % 14.9 % (20.5-51.1) L 03/05/25 14:52
Monocytes % 10.2 % (1.7-9.3) H 03/05/25 14:52
Eosinophils % 1.3 % (0-6) 03/05/25 14:52
Basophils % 0.4 % (0-2) 03/05/25 14:52
ESR 192 mm/hour (0-20) H 03/05/25 14:52
C-Reactive Protein 135.10 mg/L (0.0-10.00) H 03/05/25 14:52
Ur Squamous Epith Cells >30 /LPF (Few) 03/06/25 04:08
Microbiology Results
Micro:
03/06/25 04:08 Urine Culture - Pending
Urine
03/05/25 14:52 Blood Parasites Smear - Preliminary
Blood/Venous
03/05/25 14:52 Blood Culture - Pending
Blood/Venous
03/05/25 14:52 Blood Culture - Pending
Blood/Venous
03/04/[address]: No CT evidence for acute intracranial hemorrhage or obstructive hydrocephalus.
2. Low-lying cerebellar tonsils (or mild Chiari I malformation).
3. Mild right sphenoid sinusitis.
Assessment / Plan
# Suspect Lyme disease
# Fever, Elev LFT's, MALONE, rash due to Lyme
-Babesia smear neg
- Lyme screen pending
- Start doxycycline 100mg po bid.
- Follow temps and clinically.
- In my opinion, can hold brain MRI unless no response to doxycycline.
Care Review
Plan reviewed with: Physician (Dr. Barraza)
--- NOTE | 2025-03-06 10:15 | CM ---
insurance office manager reviewed patient's chart and met with patient and patient lives with her spouse and son in a 2 story home, with 3 steps to enter, patient is independent with adl's and ambulation, no dme, patient drives, home when stable, no needs.
PCP: Matheus Infante
Pharmacy: [facility]
--- NOTE | 2025-03-06 10:50 | W.PN.HOSP.TC ---
Today's Communication/Plan
-
Assessment / Plan
Assessment / Plan
General: No Apparent Distress, Conversant
HEENT: NormoCephalic, Moist mucous membranes, Atraumatic
Respiratory: Clear and Non Labored Respirations
Cardiac: S1/S2 and Regular Rhythm; No Rub or Gallop
GI: Soft, Non Tender, Non Distended and Normal Bowel Sounds
Musculoskeletal: No Edema, no deformity
Skin: Warm and dry, discrete annular rash on left calf and more diffuse poorly defined rash on dorsal aspect of left foot
: NO [place]
Neuro: Awake, Alert, Nonfocal/grossly intact
Psych: Calm and Intact Judgment/Insight
Ms. Romero is a 44-year-old female with a medical history of hypertension who presented with headache that had been persistent for 3 days prior to arrival. She was given sumatriptan by her PCP without relief. In the ED she was found to be
febrile with a Tmax of 102.9 �F. She denies neck pain or stiffness. She denies any recent sick contacts. She did note development of a rash sometime within the past week on the dorsal aspect of her left foot and subsequently another similar rash
on her left calf. She denies any known tick bites is prone to tick exposure at her home. She has been admitted for further evaluation and management.
Fever of unknown source:
- Possible tickborne illness
- Babesia smear negative
- Lyme serologies pending
- Started on doxycycline 100 mg p.o. twice daily
- Appreciate ID and neurology guidance
- Continue as needed medications for headache
Transaminitis:
- Mild, likely related to febrile illness
- Will monitor for resolution and continue treatment for suspected tickborne illness
DVT prophylaxis: SCDs
CODE STATUS: Full code
Total time spent on today's encounter was 45 minutes
Anticipated Discharge: 24 - 48 hours
Subjective/Interval History
-
Date of Service: March 06, 2025
Patient was seen and examined at bedside this morning. She says she continues to feel terrible and has persistent headache.
Objective Data
-
Labs:
Laboratory Results
03/06/25 03/06/25
05:19 05:20
WBC 4.9
Hgb 11.2 L
Hct 32.7 L
Plt Count 223
Sodium 139
Potassium 3.4 L
Chloride 108 H
Carbon Dioxide 23
BUN 3 L
Creatinine 0.6
Glucose 88
Calcium 8.4
Vital Signs:
Vital Signs
Temp Pulse Resp BP Pulse Ox
98 F 94 20 143/94 100
03/06/25 07:44 03/06/25 07:44 03/06/25 07:44 03/06/25 07:44 03/06/25 07:44
Review of Systems
-
History Source: Patient
All other systems: Reviewed and negative
Constitutional: Reports Fever and Fatigue
Neuro: Reports Headache
Physical Exam
-
General: No Apparent Distress
[2025-03-06] MEDS: VIBRAMYCIN 100 MG PO ×2 (11:02→20:15)
[2025-03-06 14:17] LABS: HCG, Urine Qualitative Screen Negative
[2025-03-06 15:28] VITALS: BP 133/87
[2025-03-06 23:41] VITALS: BP 130/88
[2025-03-07] MEDS: TYLENOL 650 MG PO ×2 (00:15→05:28)
--- NOTE | 2025-03-07 00:47 | PTCARENOTE ---
Patient reported seeing a left sided facial droop in her lips while brushing teeth. Pt AAOx3, VSS. Eyes/pupils are equal, round, reactive to light. No visual changes. No slurring of words. Patient's smile and eye brows are symmetrical upon
assessment. Patient able to swallow and protrude tongue without difficulty. No new reports of weakness in any extremities. RACK CARRIER aware. No new orders. call hobbs is within reach.
--- NOTE | 2025-03-07 08:27 | W.PN.ID1 ---
Date of Service
Date of Service: March 07, 2025
Today's Communication
SEE BELOW.
Assessment / Plan
# Acute neurological Lyme disease.
# New 7th nerve palsy due to Lyme
# Fever, Elev LFT's, MALONE, rash due to Lyme
-Babesia smear neg
- Lyme screen pending
- DC doxycycline 100mg po bid.
- Start ceftriaxone 2gIV q24h
- Start prednisone 60mg po daily.
- Discussed LP to eval for meningitis to determine IV abx or po abx
Alternatively, skip LP and treat with 14d ceftriaxone. Pt prefers second option.
- Follow temps and clinically.
Chief Complaint
-: Other (Lyme)
Subjective / Review of Systems
Developed right facial weakness overnight.
Vital Signs / Physical Exam
Vital Signs
Vital Signs
Temp Pulse Resp BP Pulse Ox
98.5 F 96 14 130/88 100
03/06/25 23:41 03/06/25 23:41 03/06/25 23:41 03/06/25 23:41 03/06/25 23:41
Physical Exam
Constitutional: Acutely Ill
Eyes: No Conjunctival Hemorrhage and Sclera Anicteric
Cardiovascular: Regular Rate and S1/S2
Pulmonary: Clear
Gastrointestinal: Soft, Non Tender, Non Distended and Normal Bowel Sounds
Extremities: Negative Edema
Skin: Rash (left calf large rash and left foot dorsum rash with central darkness)
Neurological: AO x 3 and Other (New right facial palsy); Negative Meningeal Signs (no neck stiffness)
Objective Data
Lab Data
Lab Results
03/06/25 05:19
03/06/25 05:20
ESR 192 mm/hour (0-20) H 03/05/25 14:52
Total Bilirubin 0.6 mg/dl (0.2-1.3) 03/05/25 14:52
GGT 58 U/L (12-43) H 03/06/25 05:20
AST 119 U/L (14-36) H 03/05/25 14:52
ALT 98 U/L (0-35) H 03/05/25 14:52
Alkaline Phosphatase 89 U/L (38-126) 03/05/25 14:52
C-Reactive Protein 135.10 mg/L (0.0-10.00) H 03/05/25 14:52
Most recent labs reviewed.
Micro Results:
03/05/25 14:52 Blood Culture - Preliminary
Blood/Venous No Growth in 24 hours- Final report to follow
03/05/25 14:52 Blood Culture - Preliminary
Blood/Venous No Growth in 24 hours- Final report to follow
03/05/25 14:52 Blood Parasites Smear - Final
Blood/Venous
03/06/25 04:08 Urine Culture - Pending
Urine
03/04/[address]: No CT evidence for acute intracranial hemorrhage or obstructive hydrocephalus.
2. Low-lying cerebellar tonsils (or mild Chiari I malformation).
3. Mild right sphenoid sinusitis.
[2025-03-07 08:31] VITALS: BP 127/94
[2025-03-07] MEDS: VIBRAMYCIN 100 MG PO (08:31)
[2025-03-07] MEDS: ROCEPHIN 2000 MG IV (09:10)
[2025-03-07] MEDS: DELTASONE 60 MG PO (09:10)
[2025-03-07] MEDS: STERILE WATER FOR INJECTION 20 ML IV (09:11)
[2025-03-07] MEDS: SENOKOT-S 1 TABLET PO ×2 (10:02→19:36)
[2025-03-07] MEDS: KCL 40 MEQ PO (12:10)
--- NOTE | 2025-03-07 13:44 | W.PN.HOSP.TC ---
Today's Communication/Plan
-
Midline catheter
Discharge planning
Assessment / Plan
Assessment / Plan
Gen-AAOx3, NAD
HEENT-NC, AT, anicteric, clear oral mm
Neck-supple
CV-reg, no M, +S1/S2
Lungs-clear B/L
Abd-soft, NT, ND
Ext-no edema
Musculoskeletal-no cyanosis, clubbing
Skin-warm and dry, left calf and left forefoot mild erythematous rash
Neuro-grossly non-focal, right-sided facial weakness involving forehead and lower face, unable to fully close right eyelid
Psych-calm, cooperative
Possible neurologic Lyme disease -faint erythema migrans rash noted on left calf and left foot, right facial palsy consistent with Paul's palsy.
Lyme serology pending. Appreciate ID input. Now on IV ceftriaxone for 14 days. Patient declined lumbar puncture. She has no headache or meningeal signs.
Last fever was medicaid eligibility specialist 03/06.
Will place midline catheter and discharge on IV antibiotics once arranged. Discussed with Dr. Cat.
Prednisone initiated by ID, anticipate 7-day course without taper.
Artificial tears to right eye to prevent corneal drying. Consider taping right eye shut especially while sleeping.
Hypokalemia -will replete. Magnesium is normal.
Transaminitis:
- Mild, likely related to febrile illness
- Will monitor for resolution and continue treatment for suspected tickborne illness
DVT prophylaxis: SCDs
CODE STATUS: Full code
Dispo -can discharge home with VN and IV antibiotics once arranged. Discussed with case management and infectious disease.
Anticipated Discharge: Within 24 hours
Subjective/Interval History
-
Date of Service: March 07, 2025
Patient seen and examined. Having difficulty closing her right eye, right facial weakness.
Objective Data
-
Vital Signs:
Vital Signs
Temp Pulse Resp BP Pulse Ox
98.3 F 96 20 127/94 100
03/07/25 08:31 03/07/25 08:31 03/07/25 08:31 03/07/25 08:31 03/07/25 08:35
I&O
03/06/25 03/07/25 03/08/25
06:59 06:59 06:59
Intake Total 480 / 480
Balance 480 / 480
Review of Systems
-
History Source: Patient
All other systems: Reviewed and negative
--- NOTE | 2025-03-07 14:40 | CM ---
Chart reviewed. Per ID, patient will need home IV abx set up at d/c. Script received.
Spoke w/ patient bedside, explained home infusion process, agreeable to [facility]
CM faxed new patient referral to [facility], will review patient's benefits and assess estimate cost for abx and supplies per week
CM made Stefanie/[facility] aware of new referral
Plan: Home w/ IV abx
[2025-03-07 15:20] VITALS: BP 139/97
[2025-03-07] MEDS: MIRALAX 17 GRAMS PO (17:41)
[2025-03-07 23:00] VITALS: BP 141/93
[2025-03-08] MEDS: TYLENOL 650 MG PO (00:17)
[2025-03-08 01:31] LABS: ANA, IgG Reflex to HEp-2 None Detected (None Detected)
[2025-03-08 06:22] LABS: SSA 52 (Ro)(ENA) Ab, IgG 4 AU/mL (0-40); SSA 60 (Ro)(ENA) Ab, IgG 0 AU/mL (0-40); SSB (La)(ENA) Ab, IgG 0 AU/mL (0-40)
[2025-03-08] MEDS: DELTASONE 60 MG PO (07:15)
[2025-03-08] MEDS: BENADRYL 25 MG IV (07:15)
[2025-03-08] MEDS: TORADOL 30 MG IV (07:15)
[2025-03-08 08:37] VITALS: BP 124/81
[2025-03-08] MEDS: ROCEPHIN 2000 MG IV (09:18)
[2025-03-08] MEDS: STERILE WATER FOR INJECTION 20 ML IV (09:18)
--- NOTE | 2025-03-08 09:59 | W.PN.ID1 ---
Addendum entered and electronically signed by Shila Cat MD 03/08/25 18:01:
Due to insurance issues with coverage for ceftriaxone, decision made for LP to rule in/out Lyme meningitis.
CSF fluid only 1 wbc and therefore ruled out meningitis.
Can transition ceftriaxone to doxycycline 100mg po bid x 25 more days.
Can complete prednisone for Paul's palsy.
Discussed with Dr. Milton.
Original Note:
Date of Service
Date of Service: March 08, 2025
Today's Communication
Continue ceftriaxone and steroid.
Assessment / Plan
# Acute neurological Lyme disease.
# New 7th nerve palsy due to Lyme
# Fever resolved
-Babesia smear neg
-Anaplasma/Ehrlichia pending
- Lyme screen negative (03/04/25) - can be negative early disease
- Continue ceftriaxone 2gIV q24h (d2 of )
Infusion sheet submitted to case management 03/07. Awaiting insurance auth.
- Continue prednisone 60mg po daily.
- Follow clinically.
- Discussed importance of insect prevention.
Chief Complaint
-: Other (Lyme)
Subjective / Review of Systems
MALONE better. Palsy progressed.
Vital Signs / Physical Exam
Vital Signs
Vital Signs
Temp Pulse Resp BP Pulse Ox
97.6 F 86 16 124/81 100
03/08/25 08:37 03/08/25 08:37 03/08/25 08:37 03/08/25 08:37 03/08/25 08:37
Physical Exam
Constitutional: No Acute Distress and Comfortable
Eyes: Sclera Anicteric
Gastrointestinal: Soft, Non Tender, Non Distended and Normal Bowel Sounds
Extremities: Negative Edema
Skin: Rash (Left calf and dorsum of foot smaller)
Neurological: Other (right facial droop)
Objective Data
Lab Data
Lab Results
03/06/25 05:19
03/06/25 05:20
ESR 192 mm/hour (0-20) H 03/05/25 14:52
Total Bilirubin 0.6 mg/dl (0.2-1.3) 03/05/25 14:52
GGT 58 U/L (12-43) H 03/06/25 05:20
AST 119 U/L (14-36) H 03/05/25 14:52
ALT 98 U/L (0-35) H 03/05/25 14:52
Alkaline Phosphatase 89 U/L (38-126) 03/05/25 14:52
C-Reactive Protein 135.10 mg/L (0.0-10.00) H 03/05/25 14:52
Most recent labs reviewed.
Micro Results:
03/05/25 14:52 Blood Culture - Preliminary
Blood/Venous No Growth in 48 hours- Final report to follow
03/05/25 14:52 Blood Culture - Preliminary
Blood/Venous No Growth in 48 hours- Final report to follow
03/06/25 04:08 Urine Culture - Final
Urine
03/05/25 14:52 Blood Parasites Smear - Final
Blood/Venous
03/04/[address]: No CT evidence for acute intracranial hemorrhage or obstructive hydrocephalus.
2. Low-lying cerebellar tonsils (or mild Chiari I malformation).
3. Mild right sphenoid sinusitis.
Care Review
Plan reviewed with: Physician (Dr. Milton)
[2025-03-08] MEDS: REFRESH EYE DROPS (PF) 1 DROPS OPHTH (12:22)
--- NOTE | 2025-03-08 13:08 | CM ---
Per Stefanie/[facility], an insurance auth will be required due to Lyme disease dx, made hospitalist and ID aware.
Stefanie provided self pay miles of $300.92/week in case auth gets denied. Will review cost w/ patient to see if this is affordable if she has to private pay for abx course.
Stefanie requesting lyme titres and western blot lab results. Discussed w/ ID, who stated lyme screen is false negative. Stefanie stated labs are still needed, updated ID
ID and hospitalist will further discuss abx for d/c
--- NOTE | 2025-03-08 13:23 | W.PN.HOSP.TC ---
Today's Communication/Plan
-
IR consult
Artificial tears
Tape right eye
Assessment / Plan
Assessment / Plan
Gen-AAOx3, NAD
HEENT-NC, AT, anicteric, clear oral mm
Neck-supple
CV-reg, no M, +S1/S2
Lungs-clear B/L
Abd-soft, NT, ND
Ext-no edema
Musculoskeletal-no cyanosis, clubbing
Skin-warm and dry, left calf and left forefoot mild erythematous rash
Neuro- right-sided facial weakness involving forehead and lower face, unable to close right eyelid
Psych-calm, cooperative
Possible neurologic Lyme disease -faint erythema migrans rash noted on left calf and left foot, right facial palsy consistent with Paul's palsy.
Lyme serology pending.
Patient now agreeable to lumbar puncture, IR consulted. If lumbar puncture negative, can discharge on oral antibiotics. Otherwise will need 14-day course of IV ceftriaxone. Discussed with ID service and case management.
Prednisone initiated by ID, anticipate 7-day course without taper.
Artificial tears to right eye to prevent corneal drying. Consider taping right eye shut especially while sleeping. Discussed with nursing.
Hypokalemia -will replete. Magnesium is normal.
Transaminitis:
- Mild, likely related to febrile illness
- Will monitor for resolution and continue treatment for suspected tickborne illness
DVT prophylaxis: SCDs
CODE STATUS: Full code
Anticipated Discharge: Within 24 hours
Subjective/Interval History
-
Date of Service: March 08, 2025
Patient seen and examined. Feels that her right facial droop is somewhat worse.
Objective Data
-
Vital Signs:
Vital Signs
Temp Pulse Resp BP Pulse Ox
97.6 F 86 16 124/81 100
03/08/25 08:37 03/08/25 08:37 03/08/25 08:37 03/08/25 08:37 03/08/25 08:37
I&O
03/07/25 03/08/25 03/09/25
06:59 06:59 06:59
Intake Total 600 / 600 480 / 480
Balance 600 / 600 480 / 480
Review of Systems
-
History Source: Patient
All other systems: Reviewed and negative
[2025-03-08 14:55] VITALS: BP 138/86; BP_SYST 89
[2025-03-08 15:49] LABS: Hepatitis B Surface Antigen Negative (Negative)
[2025-03-08 16:01] LABS: Hepatitis A IgM Antibody Negative (Negative); Hepatitis B Core Ab, IgM Negative (Negative)
[2025-03-08 16:07] LABS: Hepatitis C Antibody Negative (Negative)
[2025-03-08 17:04] LABS: Spinal Fluid Glucose 67 mg/dl (40-70); Spinal Fluid Protein 63 mg/dl (12-60)
[2025-03-08 17:34] LABS: CSF Color Colorless; CSF Tube # 4; CSF Tube # Clarity Clear; Red Cell Count/CSF 0 mm^3; White Blood Cell Count/CSF 1 mm^3 (0-5)
--- NOTE | 2025-03-08 18:24 | W.DS.TRANS ---
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
-
Discharge Instructions:
Discharge Diagnosis/Procedures Lyme disease, facial palsy
Diet Regular
Activity As tolerated
Driving Restrictions Not until seen by your Dr
Bathing Restrictions None
Instructions:
Stand-Alone Forms:
Changes to Home Medications: No
Discharge Medications:
DC Medications w/original date entered in [facility]
acetaminophen 325 mg tablet (Tylenol) 650 mg PO Q6HPRN PRN mild pain 03/05/25
cholecalciferol (vitamin D3) 25 mcg (1,000 unit) tablet (Vitamin D3) 25 mcg PO DAILY 03/05/25
lisinopril 20 mg tablet 20 mg PO DAILY 03/05/25
sertraline 50 mg tablet 50 mg PO DAILY 03/05/25
tirzepatide (weight loss) 10 mg/0.5 mL subcutaneous pen injector (Zepbound) 10 mg SC FR 03/05/25
doxycycline monohydrate 100 mg tablet 100 mg PO BID #50 tabs 03/08/25
polyvinyl alcohol-povidone (PF) 1.4 %-0.6 % eye drops in a dropperette (Refresh Classic (PF)) 1 drops ophthalmic (eye) QIDPRN PRN dry eyes #0 ea 03/08/25
prednisone 20 mg tablet 60 mg (3 x 20 mg) PO DAILY #15 tabs 03/08/25
Home Medication Changes
Pending Results: No
[2025-03-08 18:25] LABS: Lyme Disease DNA by PCR Not Detected; Lyme Source Plasma
[2025-03-08 18:42] LABS: CMV Qnt NAAT Plasma Log IU/mL Not Detected log IU/mL; CMV Quant NAAT Plasma Interp Not Detected (Not Detected); CMV Quant by NAAT Plasma IU/mL Not Detected
[2025-03-08 18:51] LABS: Hepatitis B Surface Antibody Negative
[2025-03-08 22:29] LABS: Anaplasma phagocytophilum IgG <1:80 (<1:80); Anaplasma phagocytophilum IgM < 1:16 (< 1:16)
[2025-03-08 22:47] LABS: Ehrlichia chaffeensis IgG Ab <1:64 (<1:64); Ehrlichia chaffeensis IgM Ab < 1:16 (< 1:16)
--- NOTE | 2025-03-09 14:54 | PN.CDI ---
CDI
- -
CDI:
Physician Documentation Request
Admit Date: 03/05/25 19:22
Dear Doctor Christi,
Patient admitted with Lyme disease.
03/05 Neurology consult, 'CT vkab-[id number]-[id number] cerebellar tonsils (or mild Chiari I malformation); mild right sphenoid sinusitis.
Please indicate in your progress notes if you are in agreement that the above diagnosis is valid for this patient:
____ - Chiari I malformation is a valid diagnosis (Please include it in your progress notes)
____ - Chiari I malformation is not a valid diagnosis for this patient
____ - Chiari I malformation is not yet confirmed but remains a suspected condition
____ - Other
Use of terms such as suspected, likely, concern for, or probable are acceptable for a diagnosis that is being evaluated, monitored or treated as if it exists and can be coded in the inpatient setting, when documented at the time of discharge.
Thank you,
Emiliana TATUM,RN,CCDS
CDI Specialist
Available via [place] text
Please use your independent medical judgment in providing your response.
[2025-03-09 19:34] LABS: Varicella-Zoster Source Plasma; Varicella-Zoster Virus by PCR Not Detected
[2025-03-11 20:22] LABS: Lyme Disease DNA by PCR Not Detected; Lyme Source CSF
== END 2025-03-08 20:04 | disposition home or self-care (01) | DRG 869 ==
LOC: 4 WEST ACU 19:22
PROVIDERS: Emergency Medicine; Radiology Diagnostic Radiology; ADMITTING PHYSICIAN Internal Medicine; ATTENDING PHYSICIAN Hospitalist; CONSULT PHYSICIAN Internal Medicine Infectious Disease; CONSULT PHYSICIAN Psychiatry & Neurology Neurology; EMERGENCY PHYSICIAN Emergency Medicine; FAMILY PHYSICIAN Physician Assistant Medical
PROC: 009U3ZZ Drainage of Spinal Canal, Percutaneous Approach (ICD-10-PCS; 2025-03-08)
PROC: B01B1ZZ Fluoroscopy of Spinal Cord using Low Osmolar Contrast (ICD-10-PCS; 2025-03-08)
DX: A69.20 Lyme disease, unspecified (principal); R50.9 Fever, unspecified; I10 Essential (primary) hypertension; G43.009 Migraine without aura, not intractable, without status migrainosus; E55.9 Vitamin D deficiency, unspecified; G51.0 Bell's palsy; F32.A Depression, unspecified; E87.6 Hypokalemia; F41.1 Generalized anxiety disorder; J32.3 Chronic sphenoidal sinusitis; R74.01 Elevation of levels of liver transaminase levels; Z79.85 Long-term (current) use of injectable non-insulin antidiabetic drugs
CPT/HCPCS: 62328; 70546; 70553; 73630; 80048; 80053; 80061; 81003; 81015; 81025; 82728; 82945; 82977; 83615; 83735; 84157; 84550; 85025; 85027; 85379; 85652; 86038; 86140; 86235; 86308; 86666; 86705; 86706; 86709; 86803; 87015; 87040; 87070; 87086; 87205; 87207; 87340; 87476; 87483; 87497; 87798; 89051; 93005; 96361; 96374; 96375; 99291; A9585